=== PATIENT | male | born 1955 | race African-American/Black ===

== ENCOUNTER 2019-06-04 16:16 | Inpatient (IN) | payer MEDICAID ==
[~2019-06-04] VITALS: Ht 177.8 cm; Wt 83.5 kg
[2019-06-04] MEDS ORDERED: MAGNESIUM/ALUMINUM HYDROXIDE/SIMETHICONE 30ML UDC PO NR (17:00)
[2019-06-04] MEDS ORDERED: VISCOUS LIDOCAINE 2% 15 ML UDC PO NR (17:00)
[2019-06-04 19:20] LABS: CHLORIDE 104 mEq/L (98-107)
[2019-06-04 19:25] LABS: BASOPHILS % 2.2 % (0.0-2.0); EOSINOPHILS % 0.2 % (0.0-5.0); HEMATOCRIT. 36.1 % (42.0-52.0); HEMOGLOBIN. 11.7 g/dL (14.0-18.0); LYMPHOCYTES % 24.7 % (20.0-50.0); MEAN CORPUSCULAR HEMOGLOBIN 27.9 pg (28.0-32.0); MEAN CORPUSCULAR VOLUME 85.7 fL (80.0-94.0); MEAN PLATELET VOLUME 7.4 fl (7.4-10.4); NEUTROPHILS % 66.9 % (40.0-76.0); PLATELET 374 x1000/uL (130-400); RED BLOOD CELL COUNT 4.21 mill/uL (4.7-6.1); RED CELL DISTRIBUTION WIDTH 15.8 % (11.6-14.6)
[2019-06-04] MEDS ORDERED: NITROGLYCERIN 0.4MG TABLET SL SL ONE (19:45)
[2019-06-04] MEDS ORDERED: TRAMADOL 50MG TABLET PO ONE (21:00)
[2019-06-04] MEDS ORDERED: ZOLPIDEM TARTRATE 5MG TABLET PO PRN (21:45)
[2019-06-04] MEDS ORDERED: ACETAMINOPHEN 325MG TABLET PO PRN (21:45)
[2019-06-04] MEDS ORDERED: POTASSIUM CHLORIDE 20MEQ TABLET SR PO SCH (21:45)
[2019-06-04] MEDS ORDERED: CLONIDINE 0.1MG TABLET PO PRN (21:45)
[2019-06-04] MEDS ORDERED: ONDANSETRON HCL 4MG/2ML INJ IV PRN (21:45)
[2019-06-04] MEDS ORDERED: NITROGLYCERIN 0.4MG TABLET SL SL PRN (21:45)
[2019-06-04] MEDS ORDERED: GUAIFENESIN 200MG/10ML SUGAR FREE UDC PO PRN (21:45)
[2019-06-04] MEDS ORDERED: IPRATROPIUM/ALBUTEROL 0.5-3(2.5)MG/3ML NEB NEB PRN (21:45)
[2019-06-04] MEDS ORDERED: DOCUSATE SODIUM 100MG CAPSULE PO PRN (21:45)
[2019-06-04] MEDS ORDERED: LORAZEPAM 0.5MG TABLET PO PRN (21:45)
[2019-06-04] MEDS ORDERED: DEXTROSE 50% WATER 50ML SYRINGE IV PRN (21:45)
[2019-06-04] MEDS ORDERED: MAGNESIUM/ALUMINUM HYDROXIDE/SIMETHICONE 30ML UDC PO PRN (21:45)
[2019-06-04 23:26] LABS: ETHANOL BLOOD < 10 mg/dL
[2019-06-04 23:28] LABS: LDL CHOLESTEROL 62 mg/dL (5-100); TOTAL IRON BINDING CAPACITY 306 ug/dL (250-450)
[2019-06-04 23:30] LABS: HDL CHOLESTEROL 78 mg/dL (40-59)
[2019-06-05] VITALS: BP 152/67
[2019-06-05 00:06] VITALS: BP 152/67
[2019-06-05 00:06] LABS: FOLIC ACID (FOLATE) SERUM 6.7 ng/mL (>5.38)
[2019-06-05] MEDS ORDERED: AMLO10TA80 MT (00:20)
[2019-06-05] MEDS ORDERED: TRAM50TA3 MT (00:20)
[2019-06-05] MEDS ORDERED: CLON0.1T PO (00:20)
[2019-06-05] MEDS ORDERED: INSU100I28 SQ (00:20)
[2019-06-05] MEDS ORDERED: LORA-249 PO (00:20)
[2019-06-05 04:00] VITALS: BP 159/74
[2019-06-05] MEDS ORDERED: BLOOD SUGAR DIAGNOSTIC STRIP TEST SCH (07:20)
[2019-06-05] MEDS ORDERED: INSULIN LISPRO 100 UNITS/ML SUBCUT SCH (07:50)
[2019-06-05 08:00] VITALS: BP 164/68
[2019-06-05] MEDS ORDERED: FAMOTIDINE 20MG TABLET PO SCH (09:00)
[2019-06-05] MEDS ORDERED: ENOXAPARIN 40MG/0.4ML SYR SUBCUT SCH (09:00)
[2019-06-05] MEDS ORDERED: METOPROLOL TARTRATE 25MG TABLET PO SCH (09:00)
[2019-06-05] MEDS ORDERED: ASPIRIN 325MG EC TABLET PO SCH (09:00)
[2019-06-05 10:56] VITALS: BP 149/50
[2019-06-05] MEDS ORDERED: INFLUENZA VIRUS VACCINE(AFLURIA) 0.5ML SYR IM ONE (12:00)
== END 2019-06-05 11:15 | disposition home or self-care (01) | DRG 198 ==
LOC: ER 16:16 → 6WST 21:29 → ENRESERV 22:18
PROVIDERS: ADMIT Internal Medicine; ATTEND Internal Medicine
DX: R07.89 Other chest pain (principal); I25.2 Old myocardial infarction; N17.0 Acute kidney failure with tubular necrosis; E44.1 Mild protein-calorie malnutrition; D63.8 Anemia in other chronic diseases classified elsewhere; E11.9 Type 2 diabetes mellitus without complications; E87.6 Hypokalemia; R79.89 Other specified abnormal findings of blood chemistry; F41.9 Anxiety disorder, unspecified; I10 Essential (primary) hypertension; Z68.26 Body mass index [BMI] 26.0-26.9, adult; Z76.5 Malingerer [conscious simulation]; Z88.6 Allergy status to analgesic agent; Z88.8 Allergy status to other drugs, medicaments and biological substances; Z79.4 Long term (current) use of insulin; Z79.899 Other long term (current) drug therapy
CPT/HCPCS: 36415; 71045; 80053; 80061; 80320; 82550; 82553; 82607; 82746; 82962; 83036; 83540; 83550; 83880; 84484; 85025; 90686; 93005; 93970; 99285; J1650; G0480